=== PATIENT | female | born 1975 | race African-American/Black ===

== ENCOUNTER 2016-12-27 21:02 | Emergency (ER) | payer BC, OTHER ==
[~2016-12-27] VITALS: Ht 170.2 cm; Wt 98.7 kg
[~2016-12-27 21:02] MED LIST: NOHOMEMEDS
[2016-12-27 21:09] VITALS: BP 133/86
== END 2016-12-27 23:30 | disposition left against medical advice (07) ==
LOC: EME 21:02
DX: M79.601 Pain in right arm (principal); Z53.21 Procedure and treatment not carried out due to patient leaving prior to being seen by health care provider

== ENCOUNTER → 2017-05-23 | Outpatient (CLI) | payer OTHER | END | disposition home or self-care (01) | LOC: CDC 09:14 | DX: M75.121 Complete rotator cuff tear or rupture of right shoulder, not specified as traumatic (principal); M75.41 Impingement syndrome of right shoulder; R94.31 Abnormal electrocardiogram [ECG] [EKG] | CPT/HCPCS: 93000 ==

== ENCOUNTER 2017-12-01 16:51 | Inpatient (IN) | payer OTHER ==
[~2017-12-01] VITALS: Ht 170.2 cm; Wt 101.0 kg
[2017-12-01 17:54] LABS: MCH 28.3 PG (29.0-34.0); MCHC 31.6 G/DL (30.0-36.0); MCV 89.6 FL (83-99); PLATELET COUNT 295 K/uL (156-360); RBC DIS.WIDTH-CV 12.2 % (11.8-14.6); RBC DIS.WIDTH-SD 39.9 % (39-53); RED BLOOD COUNT 4.24 M/uL (3.80-5.20); WHITE BLOOD COUNT 19.7 K/uL (4.1-10.2)
[2017-12-01 18:07] LABS: TROP-I INTERPRETATION NEGATIVE; TROPONIN-I < 0.01 ng/mL (0.0-0.30)
[2017-12-01 18:10] LABS: CHLORIDE 107 mEq/L (99-109); POTASSIUM 3.9 mEq/L (3.7-5.4); SODIUM 142 mEq/L (136-147)
[2017-12-01 18:11] LABS: GLUCOSE 108 mg/dL (70-99)
[2017-12-01 18:15] LABS: CREATININE 0.7 mg/dL (0.6-1.3); GFR ESTIMATE (CALCULATED) > 59 mL/min/
[2017-12-01 18:16] LABS: UREA NITROGEN (BUN) 7 mg/dL (9-23)
[2017-12-01 18:17] LABS: QUANTITATIVE HCG < 4.0 MIU/ML
[2017-12-01] MEDS ORDERED: OMEPRAZOLE20 MG PO (18:58)
[2017-12-01] MEDS ORDERED: LEXAPRO10 MG PO (18:58)
[2017-12-01] MEDS ORDERED: AMLODIPINE BESY10 MG PO (18:58)
[2017-12-01] MEDS ORDERED: NAPROSYN500 MG PO (18:58)
[2017-12-01] MEDS ORDERED: TRAMADOL HCL50 MG PO (18:58)
[2017-12-01] MEDS ORDERED: ATARAX,VISTARIL25 MG PO (18:59)
[2017-12-01] MEDS ORDERED: ANTIVERT12.5 MG PO (18:59)
[2017-12-01] MEDS ORDERED: LOPRESSOR25 MG PO (18:59)
[2017-12-01 22:09] VITALS: BP 153/72
[2017-12-02 01:11] LABS: TOTAL PROTEIN 7.5 g/dL (6.4-8.3)
[2017-12-02 01:13] LABS: TOTAL BILIRUBIN 0.2 mg/dL (0.0-1.0)
[2017-12-02 01:14] LABS: ALKALINE PHOSPHATASE 70 IU/L (3-129)
[2017-12-02 01:16] LABS: AST (GOT) 12 IU/L (2-34)
[2017-12-02 01:17] LABS: ALT (GPT) 7 IU/L (3-49); DIRECT BILIRUBIN 0.1 mg/dL (0.0-0.3)
[2017-12-02 04:08] VITALS: BP 133/73
[2017-12-02 06:38] LABS: BASOPHIL (%) 0.1 % (0-1); EOSINOPHIL (%) 0 % (0-5); HEMATOCRIT 35.9 % (36.0-46.0); HEMOGLOBIN 10.9 G/DL (11.9-15.5); IMMATURE GRANULOCYTE (%) 0.5 % (0.0-0.7); LYMPHOCYTE (%) 5.9 % (15-42); MCH 27.5 PG (29.0-34.0); MCHC 30.4 G/DL (30.0-36.0); MCV 90.4 FL (83-99); MONOCYTE (%) 2.9 % (3-12); MONOCYTE COUNT 0.5 K/uL (0-0.8); NEUTROPHIL (%) 90.6 % (45-76); NEUTROPHIL COUNT 15.3 K/uL (1.8-6.4); PLATELET COUNT 311 K/uL (156-360); RBC DIS.WIDTH-CV 12.1 % (11.8-14.6); RBC DIS.WIDTH-SD 40.2 % (39-53); RED BLOOD COUNT 3.97 M/uL (3.80-5.20); WHITE BLOOD COUNT 16.9 K/uL (4.1-10.2)
[2017-12-02 07:00] LABS: CHLORIDE 105 MEQ/L (99-109); CREATININE 0.6 MG/DL (0.6-1.3); GFR ESTIMATE (CALCULATED) > 59 mL/min/; GLUCOSE 154 mg/dL (70-99); POTASSIUM 4.3 MEQ/L (3.7-5.4); SODIUM 137 MEQ/L (136-147); UREA NITROGEN (BUN) 9 mg/dL (9-23)
[2017-12-02 07:28] VITALS: BP 117/56
[2017-12-02 09:45] VITALS: BP 136/76
[2017-12-02 11:12] VITALS: BP 118/67
[2017-12-02] MEDS ORDERED: LEVAQUIN750 MG PO (14:34)
[2017-12-02] MEDS ORDERED: PROAIR RESPICL90 MCG IH (14:35)
[2017-12-02] MEDS ORDERED: ESCITALOPRAM OX20 MG PO (16:01)
== END 2017-12-02 15:14 | disposition home or self-care (01) | DRG 871 ==
LOC: EME 16:51 → ENRESERV 21:12 → EDOF 21:13 → ENRESERV 21:34 → 5SOUTH 22:03
PROVIDERS: Hospitalist; Nurse Practitioner Family
DX: A41.9 Sepsis, unspecified organism (principal); J18.9 Pneumonia, unspecified organism; F33.1 Major depressive disorder, recurrent, moderate; I10 Essential (primary) hypertension; K21.9 Gastro-esophageal reflux disease without esophagitis; E11.9 Type 2 diabetes mellitus without complications; F17.200 Nicotine dependence, unspecified, uncomplicated; E66.9 Obesity, unspecified; Z68.34 Body mass index [BMI] 34.0-34.9, adult; Z83.3 Family history of diabetes mellitus; Z87.442 Personal history of urinary calculi
CPT/HCPCS: 71046; 71275; 80048; 80076; 84484; 84702; 85025; 85027; 87040; 87070; 87205; 87449; 87502; 90686; 93005; 94640; 94640 76; 99202; 99281; 99284; J1644; J1885; J1956; J7030; J7512

== ENCOUNTER 2018-03-19 23:29 | Emergency (ER) | payer OTHER ==
[~2018-03-19] VITALS: Ht 170.2 cm; Wt 101.1 kg
[~2018-03-19 23:29] MED LIST changes: +AMLODIPINE BESY10 MG PO; +ANTIVERT12.5 MG PO; +ATARAX,VISTARIL25 MG PO; +ESCITALOPRAM OX20 MG PO; +LEVAQUIN750 MG PO; +LEXAPRO10 MG PO; +LOPRESSOR25 MG PO; +NAPROSYN500 MG PO; +OMEPRAZOLE20 MG PO; +PROAIR RESPICL90 MCG IH; +TRAMADOL HCL50 MG PO
[2018-03-20] MEDS ORDERED: PREDNISONE20 MG PO (00:03)
[2018-03-20] MEDS ORDERED: PROVENTIL HFA6.7 GM IH (00:04)
[2018-03-20] MEDS ORDERED: ZITHROMAX Z-PA250 MG PO (00:04)
[2018-03-20 00:23] VITALS: BP 157/94
== END 2018-03-20 00:24 | disposition home or self-care (01) ==
LOC: EME 23:29
DX: J20.9 Acute bronchitis, unspecified (principal); I10 Essential (primary) hypertension; K21.9 Gastro-esophageal reflux disease without esophagitis; F17.200 Nicotine dependence, unspecified, uncomplicated; Z79.891 Long term (current) use of opiate analgesic; Z87.442 Personal history of urinary calculi; Z85.9 Personal history of malignant neoplasm, unspecified; Z86.79 Personal history of other diseases of the circulatory system; Z88.0 Allergy status to penicillin
CPT/HCPCS: 94640; 99281; 99284; J7512

== ENCOUNTER 2018-05-29 03:40 | Emergency (ER) | payer OTHER ==
[~2018-05-29] VITALS: Ht 170.2 cm; Wt 99.7 kg
[~2018-05-29 03:40] MED LIST changes: +PREDNISONE20 MG PO; +PROVENTIL HFA6.7 GM IH; +ZITHROMAX Z-PA250 MG PO
[2018-05-29 04:40] LABS: APPEARANCE SL.HAZY ((CLEAR)); BILIRUBIN NEGATIVE; BLOOD NEGATIVE; COLOR YELLOW ((YELLOW)); GLUCOSE (STRIP) NEGATIVE; KETONES NEGATIVE; LEUKOCYTES NEGATIVE; NITRITE NEGATIVE; PROTEIN (STRIP) NEGATIVE
[2018-05-29 04:44] LABS: BASOPHIL (%) 0.5 % (0-1); BASOPHIL COUNT 0.1 K/uL (0-0.1); EOSINOPHIL (%) 1.8 % (0-5); EOSINOPHIL COUNT 0.2 K/uL (0-0.3); HEMATOCRIT 40.6 % (36.0-46.0); HEMOGLOBIN 12.9 G/DL (11.9-15.5); IMMATURE GRANULOCYTE (%) 0.3 % (0.0-0.7); LYMPHOCYTE COUNT 2.3 K/uL (1.0-2.8); MCH 27.7 PG (29.0-34.0); MCHC 31.8 G/DL (30.0-36.0); MCV 87.3 FL (83-99); NEUTROPHIL (%) 71.4 % (45-76); NEUTROPHIL COUNT 9.3 K/uL (1.8-6.4); PLATELET COUNT 355 K/uL (156-360); RBC DIS.WIDTH-CV 12.3 % (11.8-14.6); RBC DIS.WIDTH-SD 39.3 % (39-53); RED BLOOD COUNT 4.65 M/uL (3.80-5.20)
[2018-05-29 04:53] LABS: ALBUMIN 4.3 g/dL (3.2-4.8)
[2018-05-29 04:54] LABS: CHLORIDE 107 mEq/L (99-109); SODIUM 144 mEq/L (136-147)
[2018-05-29 04:56] LABS: GLUCOSE 92 mg/dL (70-99); TOTAL PROTEIN 7.6 g/dL (6.4-8.3)
[2018-05-29 04:58] LABS: TOTAL BILIRUBIN 0.4 mg/dL (0.0-1.0)
[2018-05-29 04:59] LABS: ALKALINE PHOSPHATASE 86 IU/L (3-129)
[2018-05-29 05:00] LABS: BACTERIA RARE /HPF; EPITHELIAL CELLS RARE /HPF; MUCUS 1+ /LPF; RED BLOOD CELLS NONE SEEN /HPF (0-5); UCUL ADDED? NO; WHITE BLOOD CELLS 0-5 /HPF (0-5)
[2018-05-29 05:00] LABS: GFR ESTIMATE (CALCULATED) > 59 mL/min/
[2018-05-29 05:01] LABS: AST (GOT) 11 IU/L (2-34); UREA NITROGEN (BUN) 13 mg/dL (9-23)
[2018-05-29 05:03] LABS: ALT (GPT) 10 IU/L (3-49); LIPASE 38 U/L (1.0-51.0)
[2018-05-29] MEDS ORDERED: BENTYL20 MG PO (06:16)
[2018-05-29] MEDS ORDERED: ZOFRAN4 MG PO (06:17)
[2018-05-29 06:28] VITALS: BP 116/64
== END 2018-05-29 06:33 | disposition home or self-care (01) ==
LOC: EME 03:40
PROVIDERS: Emergency Medicine
DX: R10.10 Upper abdominal pain, unspecified (principal); R11.2 Nausea with vomiting, unspecified; I10 Essential (primary) hypertension; Z87.442 Personal history of urinary calculi; K21.9 Gastro-esophageal reflux disease without esophagitis; Z88.0 Allergy status to penicillin; F17.200 Nicotine dependence, unspecified, uncomplicated
CPT/HCPCS: 74177; 80053; 81003; 83690; 85025; 99281; 99285; J1885; J2405; J7030